=== PATIENT | female | born 1985 | race Caucasian/White ===

== ENCOUNTER 2019-09-15 14:17 | Emergency (ER) | payer SELFPAY ==
[2019-09-15 14:22] VITALS: BP 117/75
--- NOTE | 2019-09-15 14:29 | ER Document Report ---
HPI - HPI Onset: Last week Onset/Duration: Better Quality of pain: No pain Pain Level: Denies Context: Patient states that she had vaginal bleeding for 9 days from August 30-. Patient states that on September 08 she took a test that was positive. Patient states that on September 10 she started to have vaginal bleeding again. Patient states that the bleeding has resolved and that she initially had some mild cramping but that has improved as well. Patient is concerned that she may be and possibly miscarrying. Patient denies any urinary symptoms or fever. Patient denies any concern about sexually transmitted infection. Patient states she presents today to verify if she is and whether or not she is miscarrying. Patient would be G3, P1. Associated Symptoms: None Exacerbated by: Denies Relieved by: Denies Similar symptoms previously: Yes Recently seen / treated by doctor: No - ROS ROS below otherwise negative: Yes Systems Reviewed and Negative: Yes All other systems reviewed and negative - CONSTITUTIONAL Constitutional: DENIES: Fever, Chills - NEURO Neurology: DENIES: Headache, Weakness - GASTROINTESTINAL Gastrointestinal: DENIES: Abdominal Pain - REPRODUCTIVE Reproductive: REPORTS: :, Abnormal bleeding / discharge - MUSCULOSKELETAL Musculoskeletal: DENIES: Back Pain - DERM Skin Color: Normal Skin Problems: None Past Medical History - General Information source: Patient - Social History Smoking Status: Current Every Day Smoker Frequency of alcohol use: None Drug Abuse: None Occupation: None Family History: Reviewed & Not Pertinent - Medical History Medical History: Negative Past Surgical History: Reports: Hx Dilation and Curettage Vertical Provider Document - CONSTITUTIONAL Agree With Documented VS: Yes Exam Limitations: No Limitations General Appearance: WD/WN, No Apparent Distress - HEENT HEENT: Atraumatic, Normocephalic - NECK Neck: Normal Inspection, Supple. negative: Lymphadenopathy-Left, Lymphadenopathy-Right - RESPIRATORY Respiratory: Breath Sounds Normal, No Respiratory Distress, Chest Non-Tender - CARDIOVASCULAR Cardiovascular: Regular Rate, Regular Rhythm, No Murmur - GI/ABDOMEN Gastrointestinal: Abdomen Soft, Abdomen Non-Tender, Normal Bowel Sounds - BACK Back: Normal Inspection. negative: CVA Tenderness-Right, CVA Tenderness-Left - MUSCULOSKELETAL/EXTREMETIES Musculoskeletal/Extremeties: MAEW, FROM - NEURO Level of Consciousness: Awake, Alert, Appropriate Motor/Sensory: No Motor Deficit - DERM Integumentary: Warm, Dry, No Rash Course - Re-evaluation Re-evalutation: 09/15/19 16:08 Patient's ultrasound report reviewed, patient with demise at [address] Rousseau who is on-call for [facility]. Dr. Rousseau advises having patient follow-up in the office for recheck. Advises giving patient good return precautions that if her pain becomes severe she starts having bleeding more than 2 pads an hour that she should return for further evaluation. She states that they may put her on medication such as Cytotec but they could initiate this in the office setting. - Vital Signs Vital signs: Temp Pulse Resp BP Pulse Ox 97.8 F 98 18 117/75 99 09/15/19 14:21 09/15/19 14:21 09/15/19 14:21 09/15/19 14:21 09/15/19 14:21 - Laboratory Result Diagrams: 09/15/19 14:35 Discharge - Discharge Clinical Impression: demise Condition: Stable Disposition: HOME, SELF-CARE Instructions: Miscarriage Impending ([facility]) Additional Instructions: Follow-up with the [facility] provider, call tomorrow to make a follow-up appointment Return as needed for any new or worsening symptoms or if your pain becomes severe, you start to have increased vaginal bleeding greater than 2 pads an hour timeframe, you become lightheaded, dizzy, develop fever or any other concerning new symptoms Referrals: [facility] [Provider Group] - Follow up in 3-5 days
[2019-09-15 14:58] LABS: ABSOLUTE BASOPHILS # (AUTO) 0.1 10^3/uL (0.0-0.2); ABSOLUTE EOSINOPHILS # (AUTO) 0.5 10^3/uL (0.0-0.6); ABSOLUTE MONOCYTES (AUTO) 0.7 10^3/uL (0.1-1.4); ABSOLUTE NEUT (AUTO) 6.3 10^3/uL (1.7-8.2); BASOPHILS % (AUTO) 0.7 % (0-2); EOSINOPHILS % (AUTO) 4.6 % (0-6); HEMATOCRIT 41.3 % (36.0-47.0); HEMOGLOBIN 14.4 g/dL (12.0-15.5); LYMPHOCYTES % (AUTO) 28.3 % (13-45); MEAN CORPUSCULAR HEMOGLOBIN 32.9 pg (27.0-33.4); MEAN CORPUSCULAR HGB CONC 34.9 g/dL (32.0-36.0); MEAN CORPUSCULAR VOLUME 94 fl (80-97); MONOCYTES % (AUTO) 6.4 % (3-13); PLATELET COUNT 159 10^3/uL (150-450); RED BLOOD COUNT 4.39 10^6/uL (3.72-5.28); RED CELL DISTRIBUTION WIDTH 13.2 % (11.5-14.0); TOTAL CELLS COUNTED % (AUTO) 100 %; WHITE BLOOD COUNT 10.5 10^3/uL (4.0-10.5)
[2019-09-15 15:13] LABS: APPEARANCE,URINE SLIGHTLY-CLOUDY; BILIRUBIN,URINE NEGATIVE (NEGATIVE); COLOR,URINE YELLOW; GLUCOSE, URINE NEGATIVE (NEGATIVE); KETONES,URINE NEGATIVE (NEGATIVE); LEUKOCYTE ESTERASE,URINE TRACE (NEGATIVE); NITRITE,URINE NEGATIVE (NEGATIVE); PROTEIN,URINE 30 mg/dL (NEGATIVE); URINE SPECIFIC GRAVITY 1.027; UROBILINOGEN,URINE NEGATIVE mg/dL (<2.0)
--- NOTE | 2019-09-15 15:59 | RADIOLOGY REPORT (SQ) ---
EXAM DESCRIPTION: U/S OB TRANSVAGINAL W/O DOP IMAGES COMPLETED DATE/TIME: 09/15/2019 3:36 pm REASON FOR STUDY: pelvic cramping, vag bleeding, +home test COMPARISON: None. TECHNIQUE: Transvaginal static and realtime grayscale images acquired of the pelvis. Additional em cted spectral and color Doppler images recorded. All images stored on PACs. CLINICAL AGE: Not known BHCG: Pending. LIMITATIONS: None. FINDINGS: UTERUS: Irregular gestational sac with mean sac diameter 4.0 cm corresponding to 9 weeks 4 days. Yolk sac. Irregular possible pole. No cardiac activity. . RIGHT ADNEXA: Normal ovary with normal vascular flow. No adnexal free fluid. No adnexal masses. LEFT ADNEXA: Normal ovary with normal vascular flow. No adnexal free fluid. No adnexal masses. FREE FLUID: None. OTHER: No other significant finding. IMPRESSION: demise at 9 weeks. TECHNICAL DOCUMENTATION: JOB ID: [id number] 2010 [employer]- All Rights Reserved Reading location - IP/workstation name: [email or web address]
[2019-09-15 16:33] LABS: CHLAM PCR NOT DETECTED (NOT DETECT)
== END 2019-09-15 16:20 | disposition home or self-care (01) ==
LOC: ER 14:17
DX: O02.1 Missed abortion (principal); O46.91 Antepartum hemorrhage, unspecified, first trimester; O26.891 Other specified pregnancy related conditions, first trimester; R10.9 Unspecified abdominal pain; O99.331 Smoking (tobacco) complicating pregnancy, first trimester; F17.200 Nicotine dependence, unspecified, uncomplicated; Z3A.00 Weeks of gestation of pregnancy not specified
CPT/HCPCS: 36415; 76817; 81001; 84702; 85025; 86900; 86901; 87086; 87088; 87186; 87491; 87591; 99284

== ENCOUNTER 2020-04-22 11:57 | Emergency (ER) | payer SELFPAY ==
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
[2020-04-22 12:15] LABS: ABSOLUTE BASOPHILS # (AUTO) 0.1 10^3/uL (0.0-0.2); ABSOLUTE EOSINOPHILS # (AUTO) 0.5 10^3/uL (0.0-0.6); ABSOLUTE LYMPHOCYTES (AUTO) 3.6 10^3/uL (0.5-4.7); ABSOLUTE MONOCYTES (AUTO) 0.8 10^3/uL (0.1-1.4); ABSOLUTE NEUT (AUTO) 5.9 10^3/uL (1.7-8.2); BASOPHILS % (AUTO) 0.8 % (0-2); EOSINOPHILS % (AUTO) 4.3 % (0-6); HEMATOCRIT 42.2 % (36.0-47.0); HEMOGLOBIN 14.1 g/dL (12.0-15.5); LYMPHOCYTES % (AUTO) 33.1 % (13-45); MEAN CORPUSCULAR HEMOGLOBIN 30.9 pg (27.0-33.4); MEAN CORPUSCULAR HGB CONC 33.4 g/dL (32.0-36.0); MEAN CORPUSCULAR VOLUME 93 fl (80-97); MONOCYTES % (AUTO) 7.2 % (3-13); PLATELET COUNT 206 10^3/uL (150-450); RED BLOOD COUNT 4.56 10^6/uL (3.72-5.28); RED CELL DISTRIBUTION WIDTH 13.1 % (11.5-14.0); SEGMENTED NEUTROPHILS % (AUTO) 54.6 % (42-78); TOTAL CELLS COUNTED % (AUTO) 100 %; WHITE BLOOD COUNT 10.8 10^3/uL (4.0-10.5)
[2020-04-22 12:33] LABS: ALBUMIN 4.2 g/dL (3.5-5.0); ALKALINE PHOSPHATASE 48 U/L (38-126); ANION GAP 9 (5-19); ASPARTATE AMINO TRANSFERASE 41 U/L (14-36); BILIRUBIN,DIRECT 0.1 mg/dL (0.0-0.4); BILIRUBIN,TOTAL 0.5 mg/dL (0.2-1.3); BLOOD UREA NITROGEN 16 mg/dL (7-20); CALCIUM 9.2 mg/dL (8.4-10.2); CARBON DIOXIDE 25 mmol/L (22-30); CHLORIDE 105 mmol/L (98-107); GLUCOSE 285 mg/dL (75-110); POTASSIUM 4.1 mmol/L (3.6-5.0); TOTAL PROTEIN 7.4 g/dL (6.3-8.2)
[2020-04-22 12:45] LABS: APPEARANCE,URINE SLIGHTLY-CLOUDY; BILIRUBIN,URINE NEGATIVE (NEGATIVE); COLOR,URINE YELLOW; GLUCOSE, URINE >=500 mg/dL (NEGATIVE); KETONES,URINE TRACE mg/dL (NEGATIVE); LEUKOCYTE ESTERASE,URINE MODERATE (NEGATIVE); NITRITE,URINE NEGATIVE (NEGATIVE); PROTEIN,URINE 30 mg/dL (NEGATIVE); URINE SPECIFIC GRAVITY 1.024
[2020-04-22 12:49] LABS: ACETAMINOPHEN < 10 ug/mL (10-30); ALCOHOL < 10 mg/dL (NONE DETECTED); SALICYLATE < 1.0 mg/dL (2.0-20.0)
--- NOTE | 2020-04-22 12:52 | RADIOLOGY REPORT (SQ) ---
EXAM DESCRIPTION: CHEST SINGLE VIEW IMAGES COMPLETED DATE/TIME: 04/22/2020 12:22 pm REASON FOR STUDY: ams COMPARISON: None. NUMBER OF VIEWS: One view. TECHNIQUE: Single frontal radiographic view of the chest acquired. LIMITATIONS: None. FINDINGS: LUNGS AND PLEURA: No opacities, masses or pneumothorax. No pleural effusion. MEDIASTINUM AND HILAR STRUCTURES: No masses. Contour normal. HEART AND VASCULAR STRUCTURES: Heart normal in size. Normal vasculature. BONES: No acute findings. HARDWARE: None in the chest. OTHER: No other significant finding. IMPRESSION: NO SIGNIFICANT RADIOGRAPHIC FINDING IN THE CHEST. TECHNICAL DOCUMENTATION: JOB ID: [id number] 2010 [employer]- All Rights Reserved Reading location - IP/workstation name: [email or web address]
[2020-04-22 13:06] LABS: URINE BARBITURATES SCREEN NEGATIVE; URINE BENZODIAZEPINES SCREEN NEGATIVE; URINE COCAINE SCREEN NEGATIVE; URINE MARIJUANA (THC) SCREEN NEGATIVE; URINE METHADONE SCREEN NEGATIVE; URINE PHENCYCLIDINE SCREEN NEGATIVE
[2020-04-22] MEDS ORDERED: CEFTRIAXONE INJ 1000 MG VIAL IV ONE ×2 (16:43→19:30)
--- NOTE | 2020-04-22 18:51 | PSYCHOLOGICAL NOTE ---
Psych Note - Psych Note Date seen by psych provider: 04/22/20 Time seen by psych provider: 13:02 Psych Note: Reason for Consult: overdose Consent permissions: None [id number] Patient is a 35 year old female who was admitted to the ED via EMS for an overdose. Patient stated she had no idea what happened and I overdosed or something. Patient reports she cannot recall what she ingested but states it was likely something new. Patient was impaired and lethargic and unable to participate in evaluation. She kept falling sleep and was a poor historian. Reports she does not know who she lives with, Some junito in [place]. Patient states she moved to [place] 8-9 months ago. Patient denies suicidal ideation, plan, and intent. She denies homicidal ideation, plan, and intent. Patient reports this has never happened before where she overdosed and ended up in the ED. Reports she remembers being upset about something prior to taking drugs, but cannot recall what, and states she knows she did not want to end her life. Patient reports being admitted to inpatient hospitals 3 times in the past with the last time being a long time ago. Patient is not involved in medication management or therapy and states she has not ever been. When asked about substance use, she reports, I dont. I smoke weed, thats it. She denies having any family to call. Her phone was in the room and when asked for a number to call from cell phone, patient could not engage and continued to fall asleep as she was trying to get her phone out of her bag. Checked back in with patient later. She presented less lethargic, however did fall sleep a few times. She still states she cannot recall what happened and continues to deny SI and suicide attempt. Patient looked for her phone in her belongings bag, but states it must be home in her jacket pocket. Collateral: [id number] Attempted to call Jovani Latham, patient reports her ex-boyfriend, to obtain collateral. Recording stated there were calling restrictions not allowing him to receive calls from phone number. Unable to obtain other collateral at this time and will try back when patient is alert. Patient was not alert and oriented situation. Mood was confused and lethargic. She does deny current suicidal and homicidal ideation, plan, and intent. Patient cannot fully engage with clinician. Clinical Presentation: suicidal ideations Impression\plan: Patient is recommended for continued overnight mental health observation. Given her intoxicated and lethargic state, behavioral health is unable to do a complete and thorough evaluation on patient. Her cell phone is not with her in the ED and she cannot provide a phone number for collateral. Patients contact on file, her reported ex-boyfriend, was attempted, but call would not go through because of calling restrictions. Patient was admitted to the ED because of a suspected overdose. Patient was unable to fully participate in evaluation because of her intoxicated state. She did deny suicidal ideation, plan, and intent. She was unable to recall substances she took and states she only usually uses marijuana. Patient has been put on a 24 hour petition and will be re-evaluated by the behavioral health team tomorrow. Dr. Navarro was consulted to care management of this patient; attending physicians in agreement with recommendations and disposition.
--- NOTE | 2020-04-23 08:18 | EKG REPORT ---
SEVERITY:- ABNORMAL ECG - SINUS RHYTHM : Confirmed by: Luis Carlos Dickens 23-Apr-2020 08:17:39
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
--- NOTE | 2020-04-23 13:33 | ER Document Report ---
Doctor's Note Notes: Patient reevaluated at 1315. Patient stable for discharge at this time. Patient agreeable to discharge plan. Patient has been cleared by psych.
[2020-04-23 13:49] VITALS: BP 102/68
== END 2020-04-23 13:35 | disposition home or self-care (01) ==
LOC: ER 11:57
DX: T50.901A Poisoning by unspecified drugs, medicaments and biological substances, accidental (unintentional), initial encounter (principal); Y92.009 Unspecified place in unspecified non-institutional (private) residence as the place of occurrence of the external cause; N39.0 Urinary tract infection, site not specified; R58 Hemorrhage, not elsewhere classified; Z88.6 Allergy status to analgesic agent; Z88.5 Allergy status to narcotic agent
CPT/HCPCS: 93005; 99285; 51702; 96365; 36415; 82962; 80307 ×4; 84703; 85025; 80053; 81001; 71045; 93010; J0696